=== PATIENT | male | born 1950 | race Hispanic/Latino ===

== ENCOUNTER 2018-05-17 05:30 | Day surgery (SDC) | payer MEDICARE ==
[~2018-05-17] VITALS: Ht 162.6 cm; Wt 76.7 kg
[2018-05-17] VITALS (7 sets, daily range): BP systolic 93–116; BP diastolic 51–70
[~2018-05-17 05:30] MED LIST: ATEN100T PO; FURO20TA4 PO; LACT10SO75 PO; MULT-1203 PO; PROP20TA7 PO; SPIR100T PO; TIMO5DRO43 OD
[2018-05-17] MEDS ORDERED: SODIUM CHLORIDE 0.9% 1000ML 1,000 ML IV ONE (05:48)
[2018-05-17] MEDS ORDERED: PROPOFOL 1000 MG/100 ML 100 ML IV ONE (06:31)
--- NOTE | 2018-05-17 07:26 | NUR ---
DC DC INSTRUCTIONS GIVEN TO PT BROTHER JUNAID, INSTRUCTED TO F/U WITH DR. BILLINGSLEY, AND TO CONTINUE HOME MEDS. HE VERBALIZED UNDERSTANDING. PT AWAKE AND ALERT,NO DISTRESS NOTED, DENIES ANY PAIN OR DISCOMFORTS
== END 2018-05-17 07:34 | disposition home or self-care (01) ==
LOC: DAH 05:30
PROVIDERS: ATTEND Internal Medicine
DX: D00.2 Carcinoma in situ of stomach (principal); K22.8 Other specified diseases of esophagus; K31.89 Other diseases of stomach and duodenum; D49.0 Neoplasm of unspecified behavior of digestive system; E11.9 Type 2 diabetes mellitus without complications; K21.9 Gastro-esophageal reflux disease without esophagitis; K74.60 Unspecified cirrhosis of liver; R18.8 Other ascites; Z98.890 Other specified postprocedural states; Z79.899 Other long term (current) drug therapy; I85.00 Esophageal varices without bleeding
CPT/HCPCS: 43237; 43239; 82948 ×2; 88305; 93005; A4606; J2704; J7030; 43259